=== PATIENT | male | born 1955 | race Caucasian/White ===

== ENCOUNTER 2016-10-16 12:10 | Emergency (ER) | payer OTHER ==
[~2016-10-16] VITALS: Ht 170.2 cm; Wt 84.8 kg
[2016-10-16 12:15] VITALS: BP 168/108
[2016-10-16] MEDS ORDERED: DOXY100C2 PO (12:44)
--- NOTE | 2016-10-16 12:44 | PHYS DOC ---
Past Medical History Past Medical History: No Pertinent History Past Surgical History: No Surgical History Alcohol Use: None Drug Use: None Adult General Chief Complaint Chief Complaint: INSECT BITE [facility] HPI Patient is a 60 year old male presents emergency department stating that he has an area on the right occipital part of his head that is swollen tender with no drainage or discharge. He states he has a history of folliculitis. He also states that he has an area on his right lower part of his neck is red and tender he states that he had a tick in this area today when he took it off. He states the tick is only been on him for one day. He denies any fever, chills or any nausea vomiting he does however state that he's been sleeping quite a bit. Patient is unsure when his last tetanus immunization occurred. Review of Systems Review of Systems Constitutional: Denies fever or chills [] Eyes: Denies change in visual acuity, redness, or eye pain [] HENT: Denies nasal congestion or sore throat [] Respiratory: Denies cough or shortness of breath [] Cardiovascular: No additional information not addressed in HPI [] GI: Denies abdominal pain, nausea, vomiting, bloody stools or diarrhea [] : Denies dysuria or hematuria [] Musculoskeletal: Denies back pain or joint pain [] Integument: Denies rash or skin lesions. Area on the right head and neck area that are red and tender Neurologic: Denies headache, focal weakness or sensory changes [] Endocrine: Denies polyuria or polydipsia [] Current Medications Current Medications Current Medications Medications (Trade) Dose Ordered Sig/Patricia Start Time Stop Time Status Last Admin Dose Admin Diphtheria/ Tetanus/Acell Pertussis (Boostrix) 0.5 ml ONCE ONCE 10/16/16 13:00 10/16/16 13:00 DC 10/16/16 12:58 0.5 ML Allergies Allergies Allergies Coded Allergies Type Severity Reaction Last Updated Verified No Known Drug Allergies 10/16/16 No Physical Exam Physical Exam Constitutional: Well developed, well nourished, no acute distress, non-toxic appearance. [] HENT: Normocephalic, atraumatic, bilateral external ears normal, oropharynx moist, no oral exudates, nose normal. [] Eyes: PERRLA, EOMI, conjunctiva normal, no discharge. [] Neck: Normal range of motion, no tenderness, supple, no stridor. [] Cardiovascular:Heart rate regular rhythm, no murmur [] Lungs & Thorax: Bilateral breath sounds clear to auscultation [] Skin: Warm, dry, no erythema, no rash. Patient will have a large marble size area on the occipital right part of his head that is tender to touch although slightly indurated. There is no drainage or discharge noted from the area. He also has an area on the right lower part of his neck that appears to be the size of a pea that is red and tender that appears to have a scabbed area noted. No drainage or discharge noted from the site. Back: No tenderness Extremities: No tenderness, no cyanosis, no clubbing, ROM intact, no edema. [] Neurologic: Alert and oriented X 3, normal motor function, normal sensory function, no focal deficits noted. [] Psychologic: Affect normal, judgement normal, mood normal. [] Current Patient Data Vital Signs Vital Signs Date Time Temp Pulse Resp B/P (MAP) Pulse Ox O2 Delivery O2 Flow Rate FiO2 10/16/16 12:15 97.7 58 16 99 Room Air 97.7 EKG EKG [] Radiology/Procedures Radiology/Procedures [] Course & Med Decision Making Course & Med Decision Making Pertinent Labs and Imaging studies reviewed. (See chart for details) No I&D's performed for this patient. He was recommended to use warm moist packs to the areas. He will be updated with his tetanus immunization here in the emergency department. He'll also be recommended to use warm moist packs to the areas. He'll be placed on doxycycline for the next 10 days. Signs and symptoms to return back to emergency department as been provided. Patient agrees with discharge instructions treatment regimens and follow-up recommendations. His blood pressure was elevated here in the emergency department. He was instructed to monitor his blood pressure follow-up with his primary care physician as he denies any chest pain shortness of air headaches blurred vision or any lower leg swelling. Talking with patient he states that he has high blood pressure and he has not taken his blood pressure medication last 3 days. Patient states he has a with him and he is going to take it prior to leaving. [] Dragon Disclaimer Dragon Disclaimer This electronic medical record was generated, in whole or in part, using a voice recognition dictation system. Departure Departure Impression: Primary Impression: Abscess Disposition: 01 HOME, SELF-CARE Condition: STABLE Referrals: ELA BRYANT MD (PCP) Patient Instructions: Abscess, [id number] Additional Instructions: Activity as tolerated. Warm moist packs to the areas of discomfort 4 times a day for 20 minutes at a time. Tylenol or ibuprofen for pain and discomfort. Doxycycline as prescribed. Make sure you complete all the antibiotics as prescribed. Monitor your blood pressure follow-up with your primary care physician in regards to elevation of your blood pressure. Follow-up the primary care physician next 3-5 days. Return back to emergency prior signs symptoms of become worse. Scripts Doxycycline Hyclate (DOXYCYCLINE HYCLATE) 100 Mg Capsule 1 CAP PO BID, #20 CAP Prov: MELINA PNADEY APRN 10/16/16 MELINA PANDEY APRN October 16, 2016 12:44
[2016-10-16] MEDS ORDERED: DIPHTH,PERTUSS(ACELL),TET TOX 0.5 ML DISP.SYRIN. VAX IM ONE (13:00)
== END 2016-10-16 13:00 | disposition home or self-care (01) ==
LOC: ER 12:45
DX: L02.811 Cutaneous abscess of head [any part, except face] (principal); L02.11 Cutaneous abscess of neck
CPT/HCPCS: 90471; 90715; 99283-25